=== PATIENT | female | born 1950 | race African-American/Black ===

== ENCOUNTER 2019-03-26 17:39 | Inpatient (IN) | payer OTHER ==
[~2019-03-26] VITALS: Ht 162.6 cm; Wt 118.8 kg
[~2019-03-26 17:39] MED LIST: AMARYL 4; COZAAR100 MG; LEVOTHROID100 MCG; TOPROL XL100 M1; ZOCOR40 MG
[2019-03-26] MEDS ORDERED: METFORMIN HCL500 M3 PO (18:27)
[2019-03-28] MEDS ORDERED: BACTRIM DS TAB1 EACH PO (12:38)
== END 2019-03-28 13:20 | disposition home or self-care (01) | DRG 603 ==
LOC: ER 17:39 → SURH 03-27 17:20 → MEDI 03-27 17:20 → SURH 03-27 19:30
PROVIDERS: ADMIT Internal Medicine
PROC: B54BZZZ Ultrasonography of Right Lower Extremity Veins (ICD-10-PCS; principal; 2019-03-27)
DX: L03.115 Cellulitis of right lower limb (principal); I87.2 Venous insufficiency (chronic) (peripheral); I10 Essential (primary) hypertension; E11.9 Type 2 diabetes mellitus without complications; I25.10 Atherosclerotic heart disease of native coronary artery without angina pectoris; E03.8 Other specified hypothyroidism; B35.3 Tinea pedis; M79.602 Pain in left arm

== ENCOUNTER → 2020-02-14 | Outpatient (CLI) | payer OTHER ==
[~2020-02-14] MED LIST changes: +AMLODIP PO; +AVAPRO300 MG PO; +BACTRIM DS TAB1 EACH PO; +CHILDREN'S ASPI81 MG PO; +GABAPENTIN800 M1 PO; +METFORMIN HCL500 M3 PO; +NORVASC5 MG PO; +PROTONIX20 MG PO; +SIMVASTATIN10 MG PO; +TIROSINT50 MCG PO
== END | disposition home or self-care (01) ==
LOC: LAB 07:00 → RAD 07:00 → ADM 07:15 → CIR.AMB 07:15 → EDSTATUS 02-18 07:15 → CIR.AMB 02-18 08:00
PROVIDERS: ATTEND Anesthesiology Pain Medicine
DX: M99.43 Connective tissue stenosis of neural canal of lumbar region (principal); Z01.810 Encounter for preprocedural cardiovascular examination; Z01.812 Encounter for preprocedural laboratory examination

== ENCOUNTER 2020-07-18 07:33 | Outpatient (CLI) | payer OTHER | END 2020-07-18 07:56 | disposition home or self-care (01) | LOC: NUCLEAR 07:33 | PROVIDERS: ATTEND Internal Medicine Cardiovascular Disease | DX: R07.2 Precordial pain (principal); I25.6 Silent myocardial ischemia; R55 Syncope and collapse; R07.89 Other chest pain | CPT/HCPCS: 78452; 93017; A9500; J0153 ==

== ENCOUNTER 2022-12-04 07:00 | Inpatient (IN) | payer OTHER ==
[~2022-12-04] VITALS: Ht 162.6 cm; Wt 99.3 kg
[2022-12-10] MEDS ORDERED: ATORVASTATIN CA40 MG (07:56)
[2022-12-10] MEDS ORDERED: FAMOTIDINE40 MG (07:56)
[2022-12-10] MEDS ORDERED: CHLORTHALIDONE25 MG (07:56)
[2022-12-10] MEDS ORDERED: BACLOFEN10 MG (07:56)
[2022-12-10] MEDS ORDERED: KETOROLAC TROMET5 ML (07:57)
[2022-12-10] MEDS ORDERED: JENTADUETO XR1 EACH (07:57)
[2022-12-10] MEDS ORDERED: SPIRONOLACTONE25 MG (07:57)
[2022-12-10] MEDS ORDERED: EZETIMIBE10 MG (07:57)
[2022-12-10] MEDS ORDERED: TRAMADOL HCL50 MG (07:57)
[2022-12-10] MEDS ORDERED: OFLOXACIN5 ML (07:57)
[2022-12-10] MEDS ORDERED: PREDNISOLONE ACE5 ML (07:57)
[2022-12-10] MEDS ORDERED: DULOXETINE HCL60 MG (07:57)
[2022-12-12] MEDS ORDERED: ELIQUIS2.5 MG PO (15:59)
[2022-12-12] MEDS ORDERED: PERCOCET 5-3251 EACH PO (15:59)
[2022-12-12] MEDS ORDERED: DUI500 PO (15:59)
== END 2022-12-12 21:46 | DRG 470 ==
LOC: SURH 12-10 07:00 → O/R 12-10 07:37 → SURG 12-10 07:37
PROVIDERS: ADMIT Orthopaedic Surgery; ATTEND Orthopaedic Surgery
PROC: 0MBL0ZZ Excision of Right Hip Bursa and Ligament, Open Approach (ICD-10-PCS; 2022-12-10)
PROC: 0SR90JZ Replacement of Right Hip Joint with Synthetic Substitute, Open Approach (ICD-10-PCS; principal; 2022-12-10 11:00)
DX: M16.11 Unilateral primary osteoarthritis, right hip (principal); M25.751 Osteophyte, right hip; M70.61 Trochanteric bursitis, right hip; I10 Essential (primary) hypertension